=== PATIENT | male | born 1965 | race Caucasian/White ===

== ENCOUNTER 2016-09-03 13:35 | Observation (INO) ==
[2016-09-03] MEDS ORDERED: Nitroglycerin 0.4 MG TAB.SUBL SL ONE (13:56)
[2016-09-03] MEDS ORDERED: Aspirin 81 MG TAB.CHEW PO ONE (13:56)
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
[2016-09-03 14:35] LABS: Basophils # 0.1 K/mcL (0.0-0.2); Basophils % 0.8 %; Eosinophils # 0.2 K/mcL (0.0-0.6); Hematocrit 44.7 % (37.5-50.1); Lymphocytes # 1.6 K/mcL (0.6-4.6); Lymphocytes % 20.8 %; Mean Corpuscular HGB Conc 35.8 g/dL (31.6-35.5); Mean Corpuscular Hemoglobin 29.5 pg (28.0-33.3); Mean Corpuscular Volume 82.5 fL (83.0-100.0); Mean Platelet Volume 10.4 fL (9.4-12.4); Monocytes # 0.4 K/mcL (0.0-1.3); Monocytes % 5.6 %; Neutrophils # 5.1 K/mcL (1.6-8.9); Platelet Count 193 K/mcL (140-400); Red Blood Count 5.42 M/mcL (4.19-5.50); Red Cell Distribution Width 12.1 % (11.5-14.5); Segmented Neutrophils % 68.8 %
[2016-09-03 14:45] LABS: BUN/Creatinine Ratio 18 (6-26); Blood Urea Nitrogen 15 mg/dL (8-26); Calcium 9.8 mg/dL (8.6-10.8); Carbon Dioxide 25 mEq/L (19-29); Chloride 99 mEq/L (98-109); Glucose 329 mg/dL (70-99); Osmolality,Calculated 296 (280-300); Potassium 4.1 mEq/L (3.5-4.5); Sodium 136 mEq/L (136-145); eGFR For African Americans > 60 (> 60); eGFR For Non-African Americans > 60 (> 60)
[2016-09-03] MEDS ORDERED: Ondansetron 4 MG/2 ML VIAL IVP PRN (19:35)
[2016-09-03] MEDS ORDERED: Naloxone 0.4 MG/ML INJ IVP PRN (19:35)
[2016-09-03] MEDS ORDERED: D5% in Water 1,000 ML IVC PRN (19:40)
[2016-09-03] MEDS ORDERED: *HR* Dextrose 50 % in Water (Syg) 50 ML SYRINGE IVP PRN (19:40)
[2016-09-03] MEDS ORDERED: Dextrose Gel 15 GM PO PRN ×2 (19:40)
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
[2016-09-03] MEDS: Insulin LISPRO 300 UNITS/3 ML VIAL SQ SCH ×2 (21:07→21:18)
[2016-09-03] MEDS: Insulin DETEMIR 100 UNIT/ML X5UNITS SQ SCH (21:16)
[2016-09-03] MEDS: *HR* Heparin 5,000 UNIT/ML VIAL SQ SCH (21:17)
[2016-09-04] MEDS: *HR* Heparin 5,000 UNIT/ML VIAL SQ SCH ×3 (04:11→21:38)
[2016-09-04 05:05] LABS: BUN/Creatinine Ratio 18 (6-26); Blood Urea Nitrogen 14 mg/dL (8-26); Calcium 8.8 mg/dL (8.6-10.8); Carbon Dioxide 22 mEq/L (19-29); Chloride 103 mEq/L (98-109); Chol/HDL Ratio 6.9 (0-4.9); Cholesterol 185 mg/dL (< 200); Glucose 250 mg/dL (70-99); HDL Cholesterol 27 mg/dL (40-59); LDL Cholesterol,Calculated 109 mg/dL (0-99); Magnesium 1.5 mg/dL (1.6-2.6); Osmolality,Calculated 291 (280-300); Sodium 136 mEq/L (136-145); Triglycerides 243 mg/dL (< 150); eGFR For African Americans > 60 (> 60); eGFR For Non-African Americans > 60 (> 60)
[2016-09-04 05:08] LABS: Potassium 3.8 mEq/L (3.5-4.5)
[2016-09-04 05:25] LABS: Hemoglobin A1C 11.5 %
--- NOTE | 2016-09-04 08:54 | ECHO - Doppler Report ---
Echocardiogram Name: Benny Winchester Date of Study: 09/04/2016 Date: 1965 Ht: 71.0 in Medical Record#: [id number] Age: 50 Wt: 279.0 lb Gender: Male BSA: 2.43 Order #: [id number] Location: [facility] Room #: [id number] Reading Physician: Helena Fernandes DO Airport Ramp Attendant: Hima Mendez RDCS Ordering Physician: Jose Landaverde MD Primary Physician: Dewayne Good DO Indications: Cardiomyopathy Impressions: LVEF 60%. Normal left ventricular size and systolic function. There is evidence of mild diastolic dysfunction of the left ventricle. Normal right ventricular size and function. No significant valvular dysfunction. No pulmonary hypertension. Left Ventricular Wall Motion: Rest Echo Findings All wall segments showed normal motion. Findings: Study Quality * Technically challenging exam. Images are angulated and off-axis. ECG Findings * Normal sinus rhythm. Left Ventricle * LVEF 60%. * Normal LV chamber size, wall thickness and function. * Mild left ventricular diastolic dysfunction. Aorta * Normally sized aortic root. Left Atrium * Normal left atrial size. Mitral Valve * Normal mitral valve structure. * No mitral stenosis. * No mitral regurgitation. Aortic Valve * No aortic regurgitation. * Aortic valve not well visualized. * No aortic stenosis. Tricuspid Valve * Normal tricuspid valve structure. * No tricuspid regurgitation. Pulmonic Valve * Pulmonic valve is not well visualized. * No pulmonic stenosis. * No pulmonic regurgitation. Pulmonary Artery * Pulmonary artery not well visualized. Right Ventricle * Normal right ventricular structure and function. Right Atrium * Normal right atrial size. Interatrial Septum * Interatrial septum not well evaluated. Pericardium * There is no pericardial effusion present. IVC * The IVC is not well evaluated. History Hypertension Diabetes Hypercholesteremia Family History of CAD 02/28/14 a Previous Echo was performed. Measurements: BP: 130/ 88 2D Normal Values IVSd: 1.05 cm 0.6 - 1.0 cm LVIDd: 4.95 cm 3.7 - 5.6 cm LVPWd: 1.02 cm 0.6 - 1.1 cm LVIDs: 3.11 cm 1.5 - 3.6 cm AO: 2.30 cm < 4.0 cm LA: 3.10 cm 2.0 - 4.0cm %FS: 37.20 cm >25 % LA volume: 33 Mitral Valve Peak E:.69 m/sec Peak A:.68 m/sec E/A Ratio:1 Peak E' Lat Rory:10.6 cm/s Peak E' Med Rory:7.29 cm/s E/E' Lat Ratio:6.5 E/E' Med Ratio:9.5 Updated by Helena Fernandes on 09/04/2016 8:48:46 AM electronically signed on 09/04/2016 8:49:35 AM with status of Final Wall Motion Nielsen: 1=Normal, 2=Hypokinesis, 3=Akinesis, 4=Dyskinesis, 5=Aneurysmal, 6=Hyperkinetic, X=Not Visualized (Blank)=Missing
[2016-09-04] MEDS: Aspirin 81 MG TAB.CHEW PO SCH (08:57)
[2016-09-04] MEDS: Insulin LISPRO 300 UNITS/3 ML VIAL SQ SCH ×4 (08:57→21:41)
[2016-09-04] MEDS ORDERED: GuaiFENesin Liq 200 MG/10 ML UDC PO PRN (10:00)
--- NOTE | 2016-09-04 17:22 | Internal Med Progress Note ---
Date of Encounter: 09/04/16 Time of Encounter: 10:00 - Assessment and plan (1) Chest pain Current Visit: Yes Status: Acute Assessment and plan: Atypical chest pain. Chest x-ray and echo unremarkable. 3 sets of troponin negative. Stress test result is pending. Pain has improved. - Continue cardiac monitoring. - Patient has high risk of CAD because of obesity and uncontrolled diabetes. Will treat underlying disease. Qualifiers: Chest pain type: precordial pain Qualified Code(s): R07.2 - Precordial pain (2) Obesity (BMI 30-39.9) Current Visit: Yes Status: Chronic Assessment and plan: Need life style modification and diet control as outpatient. (3) Acute bronchitis Current Visit: Yes Status: Acute Assessment and plan: Symptomatic treatment. Qualifiers: Bronchitis organism: unspecified organism Qualified Code(s): J20.9 - Acute bronchitis, unspecified (4) Uncontrolled diabetes mellitus Current Visit: Yes Status: Chronic Assessment and plan: Patient has poorly controlled diabetes. He is not on insulin at home. He may need to start insulin because of high hemoglobin A1c. - life educator consult. - Continue basal and sliding scale insulin coverage. - Closely monitoring Glu - Continue aspirin and atorvastatin treatment. Qualifiers: Diabetes mellitus type: type 2 Diabetes mellitus complication status: with neurologic complications Diabetes mellitus complication detail: with polyneuropathy Diabetes mellitus half-way insulin use: without half-way use Qualified Code(s): E11.42 - Type 2 diabetes mellitus with diabetic polyneuropathy; E11.65 - Type 2 diabetes mellitus with hyperglycemia (5) DVT prophylaxis Current Visit: Yes Status: Acute Assessment and plan: Heparin subcutaneously - Subjective Interval history: Patient is a 50-year-old male admitted for chest pain. His past medical history is significant for diabetes, obesity. Patient was seen and examined today. He said chest pain has improved. Pain is intermittent, dull, no radiation. Last 30 minutes every episode. Vital signs stable. 3 sets of troponin negative, echo unremarkable. Stress test has been done, result is pending. Patient has poorly controlled diabetes with hemoglobin A1c 11.5. We will continue basal and sliding scale insulin and ask for outreach educator consult. - Constitutional Vitals: Temp Pulse Resp BP Pulse Ox 97.7 F 90 16 118/80 93 09/04/16 15:06 09/04/16 15:06 09/04/16 15:06 09/04/16 15:06 09/04/16 15:06 General appearance: Present: A&O X 3, obese, answers questions appropriately - Head Head exam: Present: atraumatic, normocephalic - Eye Eye exam: Present: PERRL, conjuntiva pink, sclera anicteric Pupils: Present: PERRL - Neck Neck exam general surgery: Present: supple, trachea midline. Absent: lymphadenopathy - Respiratory Respiratory exam: Present: CTAB. Absent: accessory muscle use, rales, rhonchi, wheezes - Cardiovascular Cardiovascular exam: Present: RRR, +S1, +S2. Absent: diastolic murmur, gallop, rubs, systolic murmur - GI/Abdominal GI/Abdominal exam: Present: normal bowel sounds, soft, no peritoneal signs. Absent: distended, tenderness - Extremities Exam Extremities exam: Present: warm, radial pulses palpable and symetrical. Absent : calf tenderness, cyanotic, pedal edema - Neurological Exam Neurological exam: Present: CN II-XII intact, oriented X3, no focal deficits. Absent: pronater drift, facial droop, speech deficit - Skin Skin exam: Present: dry, intact Internal Medicine: Result - Labs CBC & Chem 7: 09/03/16 14:27 09/04/16 03:03 Labs: BMP 09/04/16 03:03 Sodium 136 Potassium 3.8 Chloride 103 Carbon Dioxide 22 BUN 14 Creatinine 0.78 Glucose 250 H Calcium 8.8 Cardiac Enzymes 09/03/16 09/04/16 Range/Units 20:46 03:03 Troponin I 0.00 0.00 (0-0.03) ng/mL Consult Discharge Plan - Plan Referrals: Dewayne Good DO [Primary Care Provider] - 09/11/16 10:00 am
--- NOTE | 2016-09-04 19:47 | Electrocardiograph Report ---
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
[2016-09-04] MEDS: Insulin DETEMIR 100 UNIT/ML X5UNITS SQ SCH (21:41)
[2016-09-05] MEDS: *HR* Heparin 5,000 UNIT/ML VIAL SQ SCH (04:16)
[2016-09-05 06:28] LABS: BUN/Creatinine Ratio 16 (6-26); Blood Urea Nitrogen 12 mg/dL (8-26); Calcium 9.1 mg/dL (8.6-10.8); Carbon Dioxide 24 mEq/L (19-29); Chloride 101 mEq/L (98-109); Glucose 286 mg/dL (70-99); Osmolality,Calculated 290 (280-300); Potassium 4.1 mEq/L (3.5-4.5); Sodium 135 mEq/L (136-145); eGFR For African Americans > 60 (> 60); eGFR For Non-African Americans > 60 (> 60)
[2016-09-05] MEDS ORDERED: Insulin DETEMIR 100 UNIT/ML X5UNITS SQ SCH (08:14)
[2016-09-05] MEDS: Aspirin 81 MG TAB.CHEW PO SCH (08:38)
[2016-09-05] MEDS: Insulin LISPRO 300 UNITS/3 ML VIAL SQ SCH ×2 (08:39→12:42)
[2016-09-05 11:47] VITALS: BP 143/85
--- NOTE | 2016-09-05 12:20 | Electrocardiograph Report ---
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
--- NOTE | 2016-09-05 13:35 | Discharge Summary ---
Date of Encounter: 09/05/16 Time of Encounter: 10:00 - Discharge Diagnosis (1) Chest pain Priority: Primary Status: Acute Qualifiers: Chest pain type: precordial pain Qualified Code(s): R07.2 - Precordial pain (2) Obesity (BMI 30-39.9) Priority: Secondary Status: Chronic (3) Acute bronchitis Priority: Secondary Status: Acute Qualifiers: Bronchitis organism: unspecified organism Qualified Code(s): J20.9 - Acute bronchitis, unspecified (4) Uncontrolled diabetes mellitus Priority: Secondary Status: Chronic Qualifiers: Diabetes mellitus type: type 2 Diabetes mellitus complication status: with neurologic complications Diabetes mellitus complication detail: with polyneuropathy Diabetes mellitus halfway insulin use: without halfway use Qualified Code(s): E11.42 - Type 2 diabetes mellitus with diabetic polyneuropathy; E11.65 - Type 2 diabetes mellitus with hyperglycemia (5) DVT prophylaxis Priority: Secondary Status: Acute - Discharge Medications Prescriptions: RX: GuaiFENesin Liq [Robitussin Liq] 200 mg PO Q6HR PRN #30 udc PRN Reason: Cough RX: Aspirin 81 mg PO DAILY #30 tab.chew RX: Atorvastatin [Lipitor] 80 mg PO HS #30 tablet Home Medications: Aspirin 81 mg PO DAILY #30 tab.chew 09/05/16 [Rx] Atorvastatin [Lipitor] 80 mg PO HS #30 tablet 09/05/16 [Rx] GuaiFENesin Liq [Robitussin Liq] 200 mg PO Q6HR PRN #30 udc 09/05/16 [Rx] Insulin Glargine [Lantus] 25 unit SQ HS #30 mls 09/05/16 [Rx] Metformin [Glucophage] 500 mg PO BIDWM #60 tablet 09/05/16 [Rx] Allergies/Adverse Reactions: Allergies IVP dye Allergy (Uncoded 09/03/16 13:44) Swelling of Lip/Tongue/Throat Procedures/tests Complete & Pending: Procedures Performed prior 72 hours Category Date Time Status ECG 12 lead ECG [ECG] Routine Y 09/04/16 20:49 Completed EV echocardiogram Routine Y 09/04/16 Completed SP exercise stress ECG Routine Y 09/04/16 07:00 Completed Date of admission: 09/03/16 15:53 Primary care physician: Dewayne Good DO Consults: 09/04/16 17:19 Consult to Watch Manufacturing Supervisor [CONS] Routine Comment: Discharging clinician: Sienna Fulton Anticipated date of discharge: 09/05/16 - Patient Status Disposition: Home, Self-Care Condition: Good Functional capacity at discharge: independent ambulation Overall status at discharge: patient is back to baseline - Discharge Instructions Follow Up With: Dewayne Good DO [Primary Care Provider] - 09/11/16 10:00 am - Diet and Activity Activity: increase activity as tolerated Diet: diabetic diet Interval History: Mr. Winchester is a 50 year old male with a history of longstanding type 2 DM/ Dyslipidemia with medication non adherence who comes to the ER of [facility] with chest pain. 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 The pain was located on the left side, it was pressure-like in quality, 2/10 in severity but gina to a peak of 7/10 with exertion. Pain was worsened by exertion, it was non radiating, was associated with lightheadedness, diaphoresis and shortness of breath. He also reports nausea but no vomiting. The pain has been intermittent since Friday so he reported here today for further evaluation. He denies prior episode. He reports chesty cough with greenish sputum production after he had an upper respiratory tract 3 weeks ago. No fever or chills associated. Hospital course: Mr. Winchester is a 50 year old male admitted for chest pain. He was placed on cardiac monitoring. EKG, echocardiogram, chest x-ray has been done. Results are all unremarkable. Three sets of troponin are all negative. Patient has stress test done, however, results is nonconclusive because heart rate did not reach a certain level. Patient is pain-free now. Discussed with patient, he will follow up with cardiology as outpatient for further investigation. Patient has uncontrolled diabetes. He is not on any diabetes medication. he told me he takes Lantus at home at 25 units a day, but discontinued by himself. His hemoglobin A1c level is 11.5. He is advised to resume Lantus 25 units a day, and added metformin 500 mg twice a day. Patient will follow up with PCP for further management as outpatient. Saw and examined the patient today. Patient is awake alert oriented 3. Denies chest pain. Vitals are stable. Patient was discharged home and to follow-up with PCP as outpatient. - Time Spent with Patient Total time spent providing and/or coordinating discharge services: 40 min Greater than 30 minutes - Constitutional Vitals: Temp Pulse Resp BP Pulse Ox 97.4 F L 85 16 143/85 93 09/05/16 11:46 09/05/16 11:46 09/05/16 11:46 09/05/16 11:46 09/05/16 11:46 General appearance: Present: A&O X 3, obese, answers questions appropriately - Head Head exam: Present: atraumatic, normocephalic - Eye Eye exam: Present: PERRL, conjuntiva pink, sclera anicteric Pupils: Present: PERRL - Neck Neck exam general surgery: Present: supple, trachea midline. Absent: lymphadenopathy - Respiratory Respiratory exam: Present: CTAB. Absent: accessory muscle use, rales, rhonchi, wheezes - Cardiovascular Cardiovascular exam: Present: RRR, +S1, +S2. Absent: diastolic murmur, gallop, rubs, systolic murmur - GI/Abdominal GI/Abdominal exam: Present: normal bowel sounds, soft, no peritoneal signs. Absent: distended, tenderness - Extremities Exam Extremities exam: Present: warm, radial pulses palpable and symetrical. Absent : calf tenderness, cyanotic, pedal edema - Neurological Exam Neurological exam: Present: CN II-XII intact, oriented X3, no focal deficits. Absent: pronater drift, facial droop, speech deficit - Skin Skin exam: Present: dry, intact
== END 2016-09-05 14:39 | disposition home or self-care (01) ==
LOC: EMEROO 13:35 → 3BNU 13:35 → SUATTDRO 15:53 → 3BNU 17:10
PROVIDERS: ADMIT Internal Medicine Endocrinology, Diabetes & Metabolism; ATTEND Internal Medicine

== ENCOUNTER 2020-09-25 00:01 | Inpatient (IN) ==
[2020-09-25] MEDS ORDERED: Ondansetron ODT 4 MG TAB.RAPDIS SL PRN (03:12)
[2020-09-25] MEDS ORDERED: Naloxone 0.4 MG/ML INJ IVP PRN (03:12)
[2020-09-25] MEDS ORDERED: Melatonin 3 MG TABLET PO PRN (03:12)
[2020-09-25] MEDS ORDERED: Albuterol 2.5 MG/3 ML NEBULIZER IH PRN (04:25)
[2020-09-25] MEDS ORDERED: D5% in Water 1,000 ML IVC PRN (05:00)
[2020-09-25] MEDS ORDERED: *HR* Dextrose 50 % in Water (Vial) 50 ML VIAL IVP PRN (05:00)
[2020-09-25] MEDS ORDERED: Dextrose Gel 15 GM/37.5 ML TUBE PO PRN ×2 (05:00)
[2020-09-25 05:10] LABS: Basophils % 0.3 %; Eosinophils % 0.2 %; Hematocrit 42.5 % (37.5-50.1); Hemoglobin 14.4 g/dL (12.9-16.9); Lymphocytes # 0.7 K/mcL (0.6-4.6); Lymphocytes % 11.7 %; Mean Corpuscular HGB Conc 33.9 g/dL (31.6-35.5); Mean Corpuscular Hemoglobin 29.7 pg (28.0-33.3); Mean Corpuscular Volume 87.6 fL (83.0-100.0); Mean Platelet Volume 10.5 fL (9.4-12.4); Monocytes # 0.3 K/mcL (0.0-1.3); Monocytes % 4.3 %; Neutrophils # 4.8 K/mcL (1.6-8.9); Platelet Count 166 K/mcL (140-400); Red Blood Count 4.85 M/mcL (4.19-5.50); Red Cell Distribution Width 12.2 % (11.5-14.5); Segmented Neutrophils % 82.5 %; White Blood Count 5.8 K/mcL (4.3-11.1)
[2020-09-25 05:19] LABS: INR 1.2; Prothrombin Time 13.4 Seconds (9.4-12.1)
[2020-09-25 05:30] LABS: Alanine Aminotransferase 41 Units/L (7-52); Albumin 3.7 g/dL (3.5-5.7); Albumin/Globulin Ratio 1.3 (1.1-2.2); Alkaline Phosphatase 96 Units/L (34-104); Aspartate Amino Transferase 42 Units/L (13-39); BUN/Creatinine Ratio 19 (6-26); Bilirubin,Total 0.6 mg/dL (0.3-1.0); Blood Urea Nitrogen 10 mg/dL (6-20); Calcium 8.6 mg/dL (8.6-10.3); Carbon Dioxide 28 mEq/L (23-29); Chloride 99 mEq/L (98-107); Globulin 2.9 g/dL (2.4-3.5); Glucose 275 mg/dL (70-105); Magnesium 1.4 mg/dL (1.6-2.6); Osmolality,Calculated 291 (280-300); Sodium 136 mEq/L (136-145); Total Protein 6.6 g/dL (6.4-8.9); Troponin I < 0.03 ng/mL (< 0.04); eGFR For African Americans > 60 (> 60); eGFR For Non-African Americans > 60 (> 60)
[2020-09-25] MEDS ORDERED: *HR* Heparin 5,000 UNIT/ML VIAL SQ SCH (06:00)
[2020-09-25 06:19] LABS: Bilirubin,Direct 0.2 mg/dL (0.0-0.2); Bilirubin,Indirect 0.4 mg/dL (0.0-1.0)
[2020-09-25] MEDS ORDERED: Acetaminophen 325 MG TABLET PO PRN (07:24)
[2020-09-25] MEDS ORDERED: Albuterol 2.5 MG/3 ML NEBULIZER IH SCH (08:00)
[2020-09-25] MEDS: Insulin LISPRO 300 UNITS/3 ML VIAL SUBQ SCH ×3 (08:12→16:58)
[2020-09-25] MEDS: Aspirin 81 MG TAB.CHEW PO SCH (08:13)
[2020-09-25] MEDS: Insulin DETEMIR 100 UNIT/ML X5UNITS SUBQ SCH (20:16)
[2020-09-25] MEDS ORDERED: Insulin LISPRO 300 UNITS/3 ML VIAL SUBQ SCH (21:00)
[2020-09-25] MEDS ORDERED: Azithromycin 500 MG in 0.9 % Sodium Chloride 250 ML IVPB SCH (22:00)
[2020-09-25] MEDS ORDERED: cefTRIAXone 1,000 MG in Water for inj. (sterile) 10 ML IVP SCH (22:00)
[2020-09-26 02:23] LABS: Hematocrit 44.7 % (37.5-50.1); Hemoglobin 15.2 g/dL (12.9-16.9); Mean Corpuscular Hemoglobin 30.3 pg (28.0-33.3); Mean Corpuscular Volume 89.2 fL (83.0-100.0); Mean Platelet Volume 10.4 fL (9.4-12.4); Platelet Count 182 K/mcL (140-400); Red Blood Count 5.01 M/mcL (4.19-5.50); Red Cell Distribution Width 11.9 % (11.5-14.5); White Blood Count 8.2 K/mcL (4.3-11.1)
[2020-09-26 02:42] LABS: BUN/Creatinine Ratio 25 (6-26); Blood Urea Nitrogen 16 mg/dL (6-20); Carbon Dioxide 31 mEq/L (23-29); Chloride 99 mEq/L (98-107); Glucose 375 mg/dL (70-105); Magnesium 1.9 mg/dL (1.6-2.6); Osmolality,Calculated 299 (280-300); Potassium 4.4 mEq/L (3.5-5.1); Sodium 136 mEq/L (136-145); eGFR For African Americans > 60 (> 60); eGFR For Non-African Americans > 60 (> 60)
[2020-09-26] MEDS: *HR* Enoxaparin 40 MG/0.4 ML SYRINGE SQ SCH (05:33)
[2020-09-26] MEDS: Aspirin 81 MG TAB.CHEW PO SCH (08:19)
[2020-09-26] MEDS: Insulin LISPRO 300 UNITS/3 ML VIAL SUBQ SCH ×3 (08:19→16:46)
[2020-09-26] MEDS ORDERED: Insulin LISPRO 300 UNITS/3 ML VIAL SUBQ SCH (10:43)
[2020-09-26] MEDS: Insulin DETEMIR 100 UNIT/ML X5UNITS SUBQ SCH (20:12)
[2020-09-27] MEDS: *HR* Enoxaparin 40 MG/0.4 ML SYRINGE SQ SCH (04:51)
[2020-09-27] MEDS: Insulin LISPRO 300 UNITS/3 ML VIAL SUBQ SCH ×2 (09:00→12:09)
[2020-09-27] MEDS: Aspirin 81 MG TAB.CHEW PO SCH (09:01)
[2020-09-27 11:55] VITALS: BP 137/87
== END 2020-09-27 13:32 | disposition home or self-care (01) | DRG 871 ==
LOC: 2ANU → SUATTDRO 01:40
PROVIDERS: ADMIT Internal Medicine; ATTEND Family Medicine